=== PATIENT | male | born 1985 | race Caucasian/White ===

== ENCOUNTER 2016-03-27 11:37 | Emergency (ER) | payer OTHER ==
[2016-03-27 11:52] VITALS: BP 113/74; PULSE 59; TEMP 97.5; BMI 24.4
[2016-03-27] MEDS ORDERED: IBUPROFEN 400 MG TABLET (FP) PO ONE ×2 (12:46→12:48)
[2016-03-27] MEDS ORDERED: ONDANSETRON *ODT* 4 MG TABLET SL ONE (12:46)
[2016-03-27] MEDS ORDERED: ONDANSETRON *ODT* 4 MG TABLET ONE (12:49)
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
== END 2016-03-27 13:06 | disposition home or self-care (01) ==
LOC: JERFT 11:37
DX: S16.1XXA Strain of muscle, fascia and tendon at neck level, initial encounter (principal); H93.13 Tinnitus, bilateral; Y99.0 Civilian activity done for income or pay; X00.8XXA Other exposure to uncontrolled fire in building or structure, initial encounter; Y93.89 Activity, other specified; Y92.63 Factory as the place of occurrence of the external cause
CPT/HCPCS: 99281-25